=== PATIENT | male | born 1975 | race Caucasian/White ===

== ENCOUNTER → 2021-02-24 | Outpatient (REF) ==
--- NOTE | 2021-02-24 14:33 | Diagnostic Imaging Report ---
INDICATION: Right foot injury with pain. FINDINGS: AP, oblique, and lateral views of the right foot reveal nondisplaced transverse fracture in the proximal shaft of the fifth metatarsal. No definite intra-articular extension is identified. No other fracture is seen. There is joint space narrowing and marginal spurring at the ankle. IMPRESSION: Nondisplaced acute fracture involving the proximal shaft of the fifth metatarsal. There is rather advanced ankle degenerative change. Dictated by: Dictated on workstation # [id number]
--- NOTE | 2021-02-24 14:44 | Diagnostic Imaging Report ---
INDICATION: Inversion injury. TECHNIQUE: AP, oblique, and lateral views of the right ankle were obtained. FINDINGS: There is underlying degenerative change of the ankle joint with joint space narrowing and osteophyte formation. There is prominent spurring off the medial malleolus of the distal tibia. There are calcifications inferior to the medial malleolus of the distal tibia which are of uncertain age but may be chronic. There is an acute fracture of the proximal shaft of the 5th metatarsal. IMPRESSION: Underlying degenerative findings of the right ankle with calcifications adjacent to the tip of the medial malleolus which are likely chronic. There is an acute fracture of the proximal shaft of the 5th metatarsal, correlate with right foot series. Dictated by: Dictated on workstation # [id number]
== END ==
LOC: OCC 13:58
PROVIDERS: ATTEND Family Medicine
DX: M79.671 Pain in right foot (principal)
CPT/HCPCS: 73610; 73630

== ENCOUNTER → 2021-03-13 | Outpatient (CLI) | payer OTHER | LOC: ORTHO 09:13 | PROVIDERS: ATTEND Orthopaedic Surgery | DX: S92.351A Displaced fracture of fifth metatarsal bone, right foot, initial encounter for closed fracture (principal); X58.XXXA Exposure to other specified factors, initial encounter | CPT/HCPCS: 99202 ==

== ENCOUNTER → 2021-04-03 | Outpatient (CLI) | payer OTHER ==
--- NOTE | 2021-04-03 09:35 | Diagnostic Imaging Report ---
INDICATION: Right foot fracture follow-up AP, oblique, and lateral views of the right foot are obtained and compared with 02/24/2021. Fracture of the proximal shaft of the 5th metatarsal again noted. There is some mild callus formation but there is persistent lucency at the fracture site. Remaining bony structures are intact. There are degenerative changes of the ankle joint. IMPRESSION: Signs of early healing of 5th metatarsal fracture but there is significant persistent lucency at the fracture site. Underlying degenerative findings of the ankle joint. Dictated by: Dictated on workstation # [id number]
== END ==
LOC: ORTHO 08:35
PROVIDERS: ATTEND Orthopaedic Surgery
DX: S92.351D Displaced fracture of fifth metatarsal bone, right foot, subsequent encounter for fracture with routine healing (principal); X58.XXXD Exposure to other specified factors, subsequent encounter
CPT/HCPCS: 73630; G0463; 99212

== ENCOUNTER → 2021-05-06 | Outpatient (CLI) | payer OTHER ==
--- NOTE | 2021-05-06 09:18 | Diagnostic Imaging Report ---
INDICATION: Follow-up for right foot fracture. Comparison with 04/03/2021. FINDINGS: Fracture of the proximal 5th metatarsal shaft is again noted. There has been progressive healing. There is increasing bony bridging callus since previous exam. Alignment remains unchanged. No new fractures are seen. Joint spaces are well-maintained. IMPRESSION: Healing nondisplaced fracture proximal shaft of right 5th metatarsal. Dictated by: Dictated on workstation # [id number]
== END ==
LOC: ORTHO 08:17
PROVIDERS: ATTEND Orthopaedic Surgery
DX: S92.354D Nondisplaced fracture of fifth metatarsal bone, right foot, subsequent encounter for fracture with routine healing (principal); X58.XXXD Exposure to other specified factors, subsequent encounter
CPT/HCPCS: 73630; G0463; 99212

== ENCOUNTER → 2021-06-03 | Outpatient (CLI) | payer OTHER ==
--- NOTE | 2021-06-03 09:13 | Diagnostic Imaging Report ---
Indication: Foot fracture. Exam compared to 05/06/2021. Findings: Extra-articular proximal horizontal shaft fracture of the 5th metatarsal is present, portions of the fracture line lucency remain visualized however is less well seen than on prior, some periosteal reaction and callus along its margins again noted. No adverse development. Impression: Further partial healing of nondisplaced extra-articular shaft fracture of proximal 5th metatarsal. No adverse development. Dictated by: Dictated on workstation # [id number]
== END ==
LOC: ORTHO 08:28
PROVIDERS: ATTEND Orthopaedic Surgery
DX: Z09 Encounter for follow-up examination after completed treatment for conditions other than malignant neoplasm (principal); S92.351D Displaced fracture of fifth metatarsal bone, right foot, subsequent encounter for fracture with routine healing; X58.XXXD Exposure to other specified factors, subsequent encounter
CPT/HCPCS: 73630; G0463; 99212

== ENCOUNTER → 2021-07-15 | Outpatient (CLI) | payer OTHER ==
--- NOTE | 2021-07-15 09:05 | Diagnostic Imaging Report ---
INDICATION: 5th metatarsal fracture, follow-up. TIME OF EXAM: 8:43 AM Correlation is made prior radiograph 06/03/2021. FINDINGS: Fracture at the base of the 5th metatarsal again noted. There continues to be blurring of the fracture line consistent with healing. Fracture line does remain partly visible. Alignment is anatomic. Remaining metatarsals and phalanges are intact. Midfoot and hindfoot are unremarkable. IMPRESSION: Healing proximal 5th metatarsal fracture. Fracture line remains visible. Dictated by: Dictated on workstation # [id number]
== END ==
LOC: ORTHO 08:09
PROVIDERS: ATTEND Orthopaedic Surgery
DX: S92.351D Displaced fracture of fifth metatarsal bone, right foot, subsequent encounter for fracture with routine healing (principal); X58.XXXD Exposure to other specified factors, subsequent encounter
CPT/HCPCS: 73630; G0463; 99213

== ENCOUNTER → 2021-08-14 | Outpatient (CLI) | payer OTHER ==
--- NOTE | 2021-08-14 08:59 | Diagnostic Imaging Report ---
INDICATION: 5th metatarsal fracture follow-up. AP, oblique, and lateral views of the right foot are obtained and compared to 07/15/2021. Compared to the prior study, the fracture of the 5th metatarsal proximal shaft appears unchanged in alignment and appearance. There is persistent lucency at the fracture site. There is no new bony abnormality elsewhere. IMPRESSION: Stable alignment of 5th metatarsal fracture with no new abnormality. Dictated by: Dictated on workstation # [id number]
== END ==
LOC: ORTHO 08:07
PROVIDERS: ATTEND Orthopaedic Surgery
DX: S92.351D Displaced fracture of fifth metatarsal bone, right foot, subsequent encounter for fracture with routine healing (principal); X58.XXXD Exposure to other specified factors, subsequent encounter
CPT/HCPCS: 73630; G0463; 99213